=== PATIENT | male | born 1980 | race Caucasian/White ===

== ENCOUNTER → 2024-07-01 08:16 | Outpatient (CLI) | payer OTHER, SELFPAY ==
--- NOTE | 2024-07-01 | DI.ECHO.S_ITS ---
[facility]+ [facility] : : [address] : : [place] : : [id number] : : Phone: [phone] Echocardiogram Report + + :Name: STAN VARELA Study Date: 07/01/2024 Height: 70 in : :[facility] ReadingLocation: Weight: 255 lb : : Gender: Male BSA: 2.3 m2 : :: 1980 Age: 43 yrs BP: 150/97 mmHg: :Reason For Study: ATRIAL FIBRILLATION : :Ordering Physician: ALLIE, : :ALYCE Performed By: Jah Marrero : :Referring: [id number] : + + Interpretation Summary The left ventricle is normal in size. Left ventricular systolic function appears normal without focal wall motion abnormalities. The ejection fraction is estimated to be 60-65%. The right ventricle is mildly dilated. The right ventricular systolic function is normal. Pulmonary artery pressures cannot be estimated because of the lack of a measurable TR jet velocity. The left atrial size is normal. There is no significant valvular heart disease. The aortic root is normal size. Procedure: A two-dimensional transthoracic echocardiogram with color flow and Doppler was performed. The study quality was technically good. There is no prior echocardiogram noted for this patient. The patient was in normal sinus rhythm during the exam. Left Ventricle: The left ventricle is normal in size. There is normal left ventricular wall thickness. There is no ventricular septal defect visualized. Left ventricular systolic function appears normal without focal wall motion abnormalities. The ejection fraction is estimated to be 60-65%. Right Ventricle: The right ventricle is mildly dilated. The right ventricular systolic function is normal. Atria: The left atrial size is normal. The right atrium is borderline dilated. There is no Doppler evidence for an interatrial shunt. Mitral Valve: The mitral valve leaflets appear normal. There is no evidence of stenosis, fluttering, or prolapse. There is no mitral regurgitation noted. Aortic Valve: The aortic valve is trileaflet. The aortic valve opens well. No aortic regurgitation is present. Tricuspid Valve: The tricuspid valve leaflets are thin and pliable. No tricuspid regurgitation. Pulmonary artery pressures cannot be estimated because of the lack of a measurable TR jet velocity. Pulmonic Valve: The pulmonic valve leaflets are thin and pliable; valve motion is normal. There is no pulmonic valvular regurgitation. There is no significant valvular heart disease. Great Vessels: The aortic root is normal size. The dimensions of the ascending aorta are normal. The pulmonary artery is normal size. The IVC is of normal diameter and collapses greater than 50% with a sniff. This suggests a low right atrial pressure of 3 mm Hg. Pericardium/ Pleura There is no pericardial effusion. There is no pleural effusion. MMode/2D Measurements & Calculations LVIDd: 5.7 cm LVOT diam: 2.1 cm LVIDs: 3.2 cm Ao root diam: 3.2 cm FS: 44.6 % asc Aorta Diam: 2.9 cm EPSS: 0.84 cm IVSd: 0.99 cm LVPWd: 1.0 cm LV orozco. diameter/BSA (cm/m^2): 2.5 LV sys. diameter/BSA (cm/m^2): 1.4 LA A2 area: 17.6 cm2 RA long axis: 4.5 cm LA A4 area: 18.3 cm2 RA area: 14.8 cm2 LA length (vol): 5.3 cm RA vol: 41.9 ml LA vol: 51.6 ml RA : 18.1 ml/m2 LA vol index: 22.3 ml/m2 IVC diam: 1.5 cm RVD1 (basal): 4.1 cm RVD2 (mid): 4.0 cm TAPSE: 2.7 cm Doppler Measurements & Calculations Ao V2 max: 142.2 cm/sec LVOT Max Alban: 118.7 cm/sec Ao V2 mean: 103.7 cm/sec LV V1 max P.6 mmHg Ao max P.1 mmHg LV V1 VTI: 26.7 cm Ao mean P.8 mmHg ROBEL(I,D): 2.6 cm2 Ao V2 VTI: 34.0 cm ROBEL(V,D): 2.8 cm2 sev ratio: 0.79 ROBEL indexed to BSA (cm^2/m^2): 1.1 Med Peak E' Alban: 8.7 cm/sec PA V2 max: 95.6 cm/sec Lat Peak E' Alban: 11.0 cm/sec PA V2 mean: 67.3 cm/sec PA mean P.1 mmHg PA pr(Accel): 24.2 mmHg SV(LVOT): 90.0 ml Reading Physician:02:49 PM
== END ==
LOC: ECHO 08:18
PROVIDERS: Referring Provider Preventive Medicine Aerospace Medicine; Visit Provider Preventive Medicine Aerospace Medicine
DX: I48.91 Unspecified atrial fibrillation (principal)
CPT/HCPCS: 93306